=== PATIENT | male | born 1985 | race Caucasian/White ===

== ENCOUNTER 2016-10-24 21:37 | Observation (INO) | payer BC ==
[~2016-10-24] VITALS: Ht 180.3 cm; Wt 128.9 kg
[2016-10-24] MEDS ORDERED: KETOROLAC TROMETHAMINE 30 MG/ML VIAL IV STA (23:42)
[2016-10-24] MEDS ORDERED: SODIUM CHLORIDE 0.9% 1000ML 1,000 ML IV STA (23:42)
[2016-10-24] MEDS ORDERED: ONDANSETRON INJ 2 MG/ML 2 ML VIAL IV STA (23:42)
[2016-10-24] MEDS ORDERED: HYDROmorphone INJ 0.5 MG/0.5 ML SYR IV STA (23:44)
[2016-10-24] MEDS ORDERED: HYDROmorphone INJ 0.5 MG/0.5 ML SYR IV PRN (23:45)
[2016-10-24] MEDS ORDERED: MoRPHine SULFATE 4 MG/ML 1 ML CARP\\VIAL IV PRN (23:45)
--- NOTE | 2016-10-24 23:49 | EMERGENCY ROOM VISIT NOTE ---
History Report prepared by Greyson: Amparo Chan Under the Supervision of: Dr. Ash Silveira D.O. First contact with patient: 23:38 Chief Complaint: FLANK PAIN Stated Complaint: LF SIDE SUDDEN ONSET PAIN,BACK PAIN,SWEATING History of Present Illness The patient is a 31 year old male who presents to the Emergency Room with complaints of severe and persistent left flank pain starting today. He has pain radiation to the mid abdomen. The patient was driving from [place] to [place] when he had the onset of his pain. He also complains of generalized weakness, nausea, and vomiting. He also reports chills and diaphoresis but denies any fevers. He denies chest pain, shortness of breath, dark urine/blood in urine, or any other complaints. He denies any history of similar symptoms. He does not have any medical problems. Source of History: patient Onset: today Position: other (left flank) Timing: other (persistent) Associated Symptoms: + chills, + diaphoresis, + nausea, + vomiting, + weakness, No SOB, No chest pain, No fevers Review of Systems See HPI for pertinent positives & negatives. A total of 10 systems reviewed and were otherwise negative. Past Medical & Surgical Medical Problems: (1) No Known Active Medical Problems Family History Patient reports no known family medical history. Social History Smoking Status: Never Smoker Alcohol Use: occasionally Occupation Status: employed Current/Historical Medications Scheduled PRN Famotidine (Pepcid), 20 MG PO DIRECTED PRN for Indigestion Allergies Coded Allergies: Dust (Verified Allergy, Intermediate, SNEEZING, RUNNY NOSE, ITCHY EYES, ) Molds and Smuts (Verified Allergy, Intermediate, SNEEZING, RUNNY NOSE, ITCHY EYES, 10/25/16) POLLEN (Verified Allergy, Intermediate, SNEEZING, RUNNY NOSE, ITCHY EYES, 10/25/16) Physical Exam Vital Signs Date Time Temp Pulse Resp B/P Pulse Ox O2 Delivery O2 Flow Rate FiO2 10/25/16 01:44 62 21 144/79 97 Room Air 10/25/16 00:07 60 10/25/16 00:06 59 145/89 95 Room Air 10/24/16 21:44 36.8 73 18 180/100 99 Room Air Physical Exam GENERAL: Patient is awake, alert, very anxious and uncomfortable appearing, appears to be in significant pain. EYES: The conjunctivae are clear. The pupils are round and reactive. EARS, NOSE, MOUTH AND THROAT: The nose is without any evidence of any deformity. Mucous membranes are moist tongue is midline NECK: The neck is nontender and supple. RESPIRATORY: Normal respiratory effort is noted there is no evidence of wheezing rhonchi or rales CARDIOVASCULAR: Regular rate and rhythm noted there no murmurs rubs or gallops normal S1 normal S2 GASTROINTESTINAL: The abdomen is soft. Bowel sounds are present in all quadrants. Abdomen is diffusely tender with significant tenderness in the left upper and left lower quadrants. No specific guarding or rigidity appreciated. BACK: CVA tenderness to percussion on the left, no midline tenderness noted, range of motion appeared intact MUSCULOSKELETAL/EXTREMITIES: There is no evidence of gross deformity full range of motion is noted in the hips and shoulders SKIN: Cool and diaphoretic. There is no edema or signs of cellulitis in the lower extremities. NEUROLOGIC: Patient is awake alert and oriented x3 Medical Decision & Procedures ER Provider Diagnostic Interpretation: CT results as stated below per my review and radiologist interpretation. CT ABDOMEN AND PELVIS A few loops of small bowel demonstrate mild wall thickening. This may represent minimal enteritis, in the central abdomen. There is also mild mesenteric lymphadenopathy, anomaly in the right lower quadrant. This may represent mesenteric adenitis. Could be reactive to mild enteritis. Remained of noncontrast study shows no definite evidence for an acute inflammatory process. Radiologist: Ashok Ann MD Laboratory Results Test 10/24/16 23:50 Immature Granulocyte % (Auto) 0.3 % White Blood Count 18.04 K/uL (4.8-10.8) Red Blood Count 5.16 M/uL (4.7-6.1) Hemoglobin 14.8 g/dL (14.0-18.0) Hematocrit 43.7 % (42-52) Mean Corpuscular Volume 84.7 fL (80-100) Mean Corpuscular Hemoglobin 28.7 pg (25-34) Mean Corpuscular Hemoglobin Concent 33.9 g/dl (32-36) Platelet Count 279 K/uL (130-400) Mean Platelet Volume 10.1 fL (7.4-10.4) Neutrophils (%) (Auto) 86.9 % Lymphocytes (%) (Auto) 8.6 % Monocytes (%) (Auto) 4.1 % Eosinophils (%) (Auto) 0.0 % Basophils (%) (Auto) 0.1 % Neutrophils # (Auto) 15.68 K/uL (1.4-6.5) Lymphocytes # (Auto) 1.55 K/uL (1.2-3.4) Monocytes # (Auto) 0.74 K/uL (0.11-0.59) Eosinophils # (Auto) 0.00 K/uL (0-0.5) Basophils # (Auto) 0.02 K/uL (0-0.2) Immature Granulocyte # (Auto) 0.05 K/uL (0.00-0.02) Urine Color YELLOW Urine Appearance CLEAR (CLEAR) Urine pH 5.5 (4.5-7.5) Urine Specific [place] 1.024 (1.000-1.030) Urine Protein NEG (NEG) Urine Glucose (UA) NEG (NEG) Urine Ketones NEG (NEG) Urine Occult Blood NEG (NEG) Urine Nitrite NEG (NEG) Urine Bilirubin NEG (NEG) Urine Urobilinogen NEG (NEG) Urine Leukocyte Esterase NEG (NEG) Total Bilirubin 0.7 mg/dl (0.2-1) Direct Bilirubin 0.1 mg/dl (0-0.2) Aspartate Amino Transf (AST/SGOT) 7 U/L (15-37) Alanine Aminotransferase (ALT/SGPT) 28 U/L (12-78) Alkaline Phosphatase 78 U/L (45-117) Total Protein 7.8 gm/dl (6.4-8.2) Albumin 4.3 gm/dl (3.4-5.0) Lipase 101 U/L (73-393) Laboratory results per my review. Medications Administered Medications (Trade) Dose Ordered Sig/Abhijeet Route Start Time Stop Time Status Last Admin Dose Admin Sodium Chloride (Nss 1000ml) 1,000 ml @ 999 mls/hr Q1H1M STAT IV 10/24/16 23:42 10/25/16 00:42 DC 10/25/16 00:01 999 MLS/HR Ondansetron HCl (Zofran Inj) 4 mg NOW STAT IV 10/24/16 23:42 10/24/16 23:44 DC 10/25/16 00:00 4 MG Ketorolac Tromethamine (Toradol Inj) 30 mg NOW STAT IV 10/24/16 23:42 10/24/16 23:44 DC 10/25/16 00:00 30 MG Hydromorphone HCl (Dilaudid Inj) 0.5 mg NOW STAT IV 10/24/16 23:44 10/24/16 23:45 DC 10/25/16 00:00 0.5 MG ED Course 2338: The patient was evaluated in room B08. A complete history and physical examination were performed. 2342: Toradol Inj 30 mg IV, Zofran Inj 4 mg IV, Sodium Chloride 1000 ml @ 999 mls/hr IV 2344: Dilaudid Inj 0.5 mg IV 2345: Dilaudid Inj 0.5 mg IV, Morphine Sulfate 4 mg IV 0030: I reevaluated the patient who is not feeling any better. 0110: I discussed results and treatment plan with the patient. He verbalizes agreement and understanding. 0118: I spoke with Dr. Armas of the [facility] Service. The patient will be evaluated for further management and care. Medical Decision Prior records/ancillary studies reviewed. Triage Nursing notes reviewed. The patient's history was concerning for flank pain. Differential diagnosis: Etiologies such as renal colic, appendicitis, diverticulitis, mesenteric ischemia, aortic pathology, infections, inflammatory bowel disease, PUD, biliary pathology, UTI, as well as others were entertained. The patient is a 31-year-old male who presented to the emergency department for an evaluation of acute onset of left flank pain and abdominal pain. The patient' s physical exam was consistent with with very significant pain. He was very diaphoretic and uncomfortable. Given the acute onset of his symptoms I thought this could be consistent with a kidney stone. The patient was treated with IV fluids IV pain medicine and IV antiemetics. On subsequent reevaluation he was only mildly improved. For this reason I discussed his case with the on-call [facility]ist. They've agreed to evaluate the patient in the emergency department for further management and disposition. The patient was not found have signs of ureteral calculi. He did not have acute appendicitis or diverticulitis. The CAT scan appear to be more consistent with a nonspecific enteritis. This is somewhat puzzling given the acute onset of the patient's symptoms. But he is not from the area and does not have anywhere to stay or any follow-up and given his elevated white blood cell count and his symptoms I felt he would be better managed as an inpatient. Consults Time Called: 116 Consulting Physician: Dr. Armas of the [facility]ist Service Returned Call: [phone] [facility] The patient will be evaluated for further management and care. Impression Primary Impression: Abdominal pain, left lower quadrant Additional Impressions: Nausea & vomiting Elevated WBC count Scribe Attestation The scribe's documentation has been prepared under my direction and personally reviewed by me in its entirety. I confirm that the note above accurately reflects all work, treatment, procedures, and medical decision making performed by me. Departure Information Dispostion Being Evaluated By Hospitalist Referrals No Doctor, Assigned (PCP) Patient Instructions My [facility] Problem Qualifiers Additional Impressions: Nausea & vomiting Vomiting type: unspecified Vomiting Intractability: non-intractable Qualified Codes: R11.2 - Nausea with vomiting, unspecified Elevated WBC count Leukocytosis type: unspecified Qualified Codes: D72.829 - Elevated white blood cell count, unspecified
[2016-10-25 00:05] LABS: BASO % 0.1 %; BASO ABS # 0.02 K/uL (0-0.2); COMPLETE YES; HEMATOCRIT 43.7 % (42-52); IG% 0.3 %; LYMPH % 8.6 %; LYMPH ABS # 1.55 K/uL (1.2-3.4); MEAN CELL VOLUME 84.7 fL (80-100); MEAN CORPUSCULAR HEMOGLOBIN 28.7 pg (25-34); MEAN CORPUSCULAR HGB CONC 33.9 g/dl (32-36); MEAN PLATELET VOLUME 10.1 fL (7.4-10.4); MONO % 4.1 %; NEUT % 86.9 %; PLATELET COUNT 279 K/uL (130-400); RED BLOOD COUNT 5.16 M/uL (4.7-6.1); WHITE BLOOD COUNT 18.04 K/uL (4.8-10.8)
[2016-10-25] MEDS ORDERED: FAMO20TA11 PO (00:13)
[2016-10-25 00:32] LABS: BUN/CREATININE RATIO 15.7 (10-20); CREATININE 1.1 mg/dl (0.60-1.40)
[2016-10-25 01:06] LABS: URINE APPEARANCE CLEAR (CLEAR); URINE BILIRUBIN NEG (NEG); URINE COLOR YELLOW; URINE NITRITE NEG (NEG); URINE PH 5.5 (4.5-7.5); URINE SPECIFIC GRAVITY 1.024 (1.000-1.030); UROBILINOGEN NEG (NEG)
[2016-10-25 01:07] LABS: MANUAL MICROSCOPIC REQUIRED? NO; REVIEW REQ? NO
--- NOTE | 2016-10-25 01:58 | History and Physical ---
History & Physical Date & Time of Service: Oct 25, 2016 at 01:58 Chief Complaint: Abdominal pain, nausea, vomiting . Primary Care Physician: No Doctor, Assigned History of Present Illness Source: patient, hospital records 31-year-old male traveling from [place] to [place]. He enjoys good health. Developed sudden onset of left-sided abdominal/flank pain earlier today. The pain was sharp in nature and severe. It radiated toward his umbilicus. He was initially nauseated and subsequently developed large-volume emesis without blood or coffee grounds. No diarrhea, melena, hematochezia. No dysuria or hematuria. No fever. He tried Pepcid without much benefit. Came to the ED because of his worsening symptoms. . Past Medical/Surgical History mild asthma s/p tonsillectomy s/p ACL repair . Family History Father-abdominal aortic aneurysm Grandfather -CLL, mitral valve replacement Grandmother-hypertension, melanoma Grandfather- stroke, diabetes, prostate cancer Grandmother-[place] . . Social History Smoking Status: Never Smoker Alcohol Use: occasionally Occupational Status: employed Allergies Coded Allergies: Dust (Verified Allergy, Intermediate, SNEEZING, RUNNY NOSE, ITCHY EYES, ) Molds and Smuts (Verified Allergy, Intermediate, SNEEZING, RUNNY NOSE, ITCHY EYES, 10/25/16) POLLEN (Verified Allergy, Intermediate, SNEEZING, RUNNY NOSE, ITCHY EYES, 10/25/16) Home Medications Scheduled PRN Famotidine (Pepcid), 20 MG PO DIRECTED PRN for Indigestion Review of Systems As noted above in HPI. . Physical Exam Vital Signs Date Time Temp Pulse Resp B/P Pulse Ox O2 Delivery O2 Flow Rate FiO2 10/25/16 00:07 60 10/25/16 00:06 59 145/89 95 Room Air 10/24/16 21:44 36.8 73 18 180/100 99 Room Air General Appearance: WD/WN, + mild distress Head: normocephalic, atraumatic Eyes: normal inspection, PERRL, EOMI, sclerae normal ENT: normal ENT inspection Neck: supple, no adenopathy, thyroid normal, no JVD Respiratory/Chest: lungs clear, no respiratory distress, no accessory muscle use Cardiovascular: regular rate, rhythm, no edema, no gallop, no JVD, no murmur Abdomen/GI: + pertinent finding (quite bowel sounds, nondistended, moderate left lower quadrant tenderness without rebound or guarding, no organomegaly, no pulsatile masses) Extremities/Musculoskelatal: normal inspection, no calf tenderness Neurologic/Psych: 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 tested, alert, normal mood/affect, oriented x 3 Skin: normal color, warm/dry, no rash Diagnostics Laboratory Results Results Past 24 Hours Test 10/24/16 23:50 Range/Units White Blood Count 18.04 4.8-10.8 K/uL Red Blood Count 5.16 4.7-6.1 M/uL Hemoglobin 14.8 14.0-18.0 g/dL Hematocrit 43.7 42-52 % Mean Corpuscular Volume 84.7 80-100 fL Mean Corpuscular Hemoglobin 28.7 25-34 pg Mean Corpuscular Hemoglobin Concent 33.9 32-36 g/dl Platelet Count 279 130-400 K/uL Mean Platelet Volume 10.1 7.4-10.4 fL Neutrophils (%) (Auto) 86.9 % Lymphocytes (%) (Auto) 8.6 % Monocytes (%) (Auto) 4.1 % Eosinophils (%) (Auto) 0.0 % Basophils (%) (Auto) 0.1 % Neutrophils # (Auto) 15.68 1.4-6.5 K/uL Lymphocytes # (Auto) 1.55 1.2-3.4 K/uL Monocytes # (Auto) 0.74 0.11-0.59 K/uL Eosinophils # (Auto) 0.00 0-0.5 K/uL Basophils # (Auto) 0.02 0-0.2 K/uL RDW Standard Deviation 40.7 36.4-46.3 fL RDW Coefficient of Variation 13.3 11.5-14.5 % Immature Granulocyte % (Auto) 0.3 % Immature Granulocyte # (Auto) 0.05 0.00-0.02 K/uL Urine Color YELLOW Urine Appearance CLEAR CLEAR Urine pH 5.5 4.5-7.5 Urine Specific [place] 1.024 1.000-1.030 Urine Protein NEG NEG Urine Glucose (UA) NEG NEG Urine Ketones NEG NEG Urine Occult Blood NEG NEG Urine Nitrite NEG NEG Urine Bilirubin NEG NEG Urine Urobilinogen NEG NEG Urine Leukocyte Esterase NEG NEG Sodium Level 144 136-145 mmol/L Potassium Level 4.0 3.5-5.1 mmol/L Chloride Level 108 98-107 mmol/L Carbon Dioxide Level 26 21-32 mmol/L Anion Gap 10.0 3-11 mmol/L Blood Urea Nitrogen 17 7-18 mg/dl Creatinine 1.10 0.60-1.40 mg/dl Est Creatinine Clear Calc Drug Dose 133.1 ml/min Estimated GFR () 103.1 Estimated GFR (Non- 89.0 BUN/Creatinine Ratio 15.7 10-20 Random Glucose 129 70-99 mg/dl Calcium Level 9.0 8.5-10.1 mg/dl Total Bilirubin 0.7 0.2-1 mg/dl Direct Bilirubin 0.1 0-0.2 mg/dl Aspartate Amino Transf (AST/SGOT) 7 15-37 U/L Alanine Aminotransferase (ALT/SGPT) 28 12-78 U/L Alkaline Phosphatase 78 45-117 U/L Total Protein 7.8 6.4-8.2 gm/dl Albumin 4.3 3.4-5.0 gm/dl Lipase 101 73-393 U/L Diagnostic Radiology CT of the abdomen showed some small bowel thickening consistent with an enteritis. No evidence of bowel obstruction, perforated viscus, diverticulitis, appendicitis, etc. . Impression Assessment and Plan ABDOMINAL PAIN Most likely secondary to viral gastroenteritis. Manage with IV fluids, antiemetics, analgesics. Further evaluation as necessary if symptoms worsen. VTE PROPHYLAXIS Low risk. Subcutaneous enoxaparin. Ambulate. DISPOSITION Observation status on Med-Surg Unit. Expected discharge to home. Follow-up with primary care provider in [place]. . VTE Prophylaxis Given or contraindicated: Unfractionated heparin SQ
[2016-10-25] MEDS ORDERED: ONDANSETRON INJ 2 MG/ML 2 ML VIAL IV PRN (02:00)
[2016-10-25 02:35] VITALS: BP 159/103; PULSE 75; TEMP 37; O2SAT 94; Ht 180.3 cm; Wt 128.9 kg
[2016-10-25] MEDS ORDERED: HYDROmorphone INJ 0.5 MG/0.5 ML SYR IV PRN (04:45)
[2016-10-25] MEDS: D5W AND LACTATED RINGERS 1,000 ML IV SCH ×4 (05:11→23:29)
[2016-10-25] MEDS ORDERED: IV FLUIDS COMPLETED PRN (06:00)
[2016-10-25 07:02] VITALS: BP 128/72; PULSE 75; TEMP 36.7; O2SAT 95
--- NOTE | 2016-10-25 07:21 | DIAGNOSTIC IMAGING REPORT ---
CT SCAN OF THE ABDOMEN AND PELVIS WITHOUT CONTRAST CLINICAL HISTORY: left flank pain COMPARISON STUDY: No previous studies for comparison. TECHNIQUE: CT scan of the abdomen and pelvis was performed from the lung bases to the proximal femurs. Images are reviewed in the axial, sagittal, and coronal planes. IV contrast was not administered for this examination. CT DOSE: 1375.00 mGy.cm FINDINGS: Lower chest: There are minimal dependent atelectatic changes. There are calcified granulomas within the right lower lobe. Liver: The unenhanced liver is normal in size, contour, and attenuation. There is no intrahepatic biliary ductal dilatation. Gallbladder: Unremarkable. Spleen: Normal in size and attenuation. Pancreas: Unremarkable. Adrenal glands: There is a 14 mm left adrenal adenoma. Kidneys: No renal, ureteral, or bladder calculi are visualized. Bowel: There are no transition zones indicate bowel obstruction. The appendix appears normal. There is mild bowel wall thickening involving the terminal ileum. There is a small bowel feces sign. Peritoneum: There is no intraperitoneal free air or abdominal ascites. Vasculature: The abdominal aorta is normal in course and caliber. Adenopathy: There are mildly prominent ileocolic lymph nodes, likely reactive Pelvic viscera: The bladder, and pelvic viscera are unremarkable. Skeletal structures: No destructive osseous lesions are seen. IMPRESSION: 1. No evidence of bowel obstruction. No evidence of free air 2. Normal appendix 3. No renal, ureteral, or bladder calculi identified 4. Mild small bowel wall thickening most pronounced the level the terminal ileum. There is a small bowel feces sign. The findings likely indicate a nonspecific enteritis. Electronically signed by: Scar Sifuentes M.D. 10/25/2016 7:19 AM Dictated Date/Time: 10/25/2016 7:14 AM
[2016-10-25 07:44] LABS: HEMATOCRIT 39.9 % (42-52); MEAN CELL VOLUME 84.2 fL (80-100); MEAN CORPUSCULAR HEMOGLOBIN 28.9 pg (25-34); MEAN CORPUSCULAR HGB CONC 34.3 g/dl (32-36); MEAN PLATELET VOLUME 10.2 fL (7.4-10.4); PLATELET COUNT 255 K/uL (130-400); RED BLOOD COUNT 4.74 M/uL (4.7-6.1); WHITE BLOOD COUNT 14.19 K/uL (4.8-10.8)
[2016-10-25 07:58] LABS: PROTHROMBIN TIME (PATIENT) 10.7 SECONDS (9.0-12.0)
[2016-10-25 08:18] LABS: BUN/CREATININE RATIO 16.6 (10-20); CALCIUM 8.8 mg/dl (8.5-10.1); CREATININE 0.9 mg/dl (0.60-1.40); POTASSIUM 3.9 mmol/L (3.5-5.1)
[2016-10-25] MEDS: ENOXAPARIN 40 MG/0.4 ML SYR SQ SCH (09:00)
[2016-10-25] MEDS: PANTOprazole INJ 40 MG in SYRINGE 0 ML IV SCH (11:18)
[2016-10-25 11:54] VITALS: BP 122/80; PULSE 75; TEMP 36.7; O2SAT 96
[2016-10-25 14:54] VITALS: BP 138/86; PULSE 79; TEMP 36.8; O2SAT 94
[2016-10-25 15:15] VITALS: O2SAT 94
--- NOTE | 2016-10-25 16:52 | Progress Note ---
Internal Med Progress Note Date of Service: Oct 25, 2016. Provider Documentation: SUBJECTIVE: nausea and vomiting resolved tolerating clears denies abdominal pain afebrile denies diarrhea OBJECTIVE: Vital Signs-as noted below Exam: General-alert and oriented x 3 Not in distress ENT-normal hearing Neck-no neck masses Lungs-cta b/l no wheezing no crackles Heart-s1 and s2 heard regular rate and rhythm no murmurs' Abdomen-soft bowel sounds present non tender no distension Extremities-no edema no erythema Neuro-alert and awake moves extremities Lab data as noted below. ASSESSMENT & PLAN: ABDOMINAL PAIN Most likely viral gastroenteritis. improving continue iv fluids advancing diet to soft diet will f/hull labs. VTE PROPHYLAXIS on Lovenox ambulate DISPOSITION possible d/c in am Vital Signs: Date Time Temp Pulse Resp B/P Pulse Ox O2 Delivery O2 Flow Rate FiO2 10/25/16 14:54 36.8 79 16 138/86 94 Room Air 10/25/16 11:54 36.7 75 17 122/80 96 Room Air 10/25/16 07:50 Room Air 10/25/16 07:02 36.7 75 16 128/72 95 Room Air 10/25/16 02:35 Room Air 10/25/16 02:35 37.0 75 16 159/103 Room Air 10/25/16 02:35 37.0 75 16 159/103 94 Room Air 10/25/16 02:24 62 21 144/79 97 10/25/16 01:44 62 21 144/79 97 Room Air 10/25/16 00:07 60 10/25/16 00:06 59 145/89 95 Room Air 10/24/16 21:44 36.8 73 18 180/100 99 Room Air Lab Results: Results Past 24 Hours Test 10/24/16 23:50 10/25/16 06:44 Range/Units White Blood Count 18.04 14.19 4.8-10.8 K/uL Red Blood Count 5.16 4.74 4.7-6.1 M/uL Hemoglobin 14.8 13.7 14.0-18.0 g/dL Hematocrit 43.7 39.9 42-52 % Mean Corpuscular Volume 84.7 84.2 80-100 fL Mean Corpuscular Hemoglobin 28.7 28.9 25-34 pg Mean Corpuscular Hemoglobin Concent 33.9 34.3 32-36 g/dl Platelet Count 279 255 130-400 K/uL Mean Platelet Volume 10.1 10.2 7.4-10.4 fL Neutrophils (%) (Auto) 86.9 % Lymphocytes (%) (Auto) 8.6 % Monocytes (%) (Auto) 4.1 % Eosinophils (%) (Auto) 0.0 % Basophils (%) (Auto) 0.1 % Neutrophils # (Auto) 15.68 1.4-6.5 K/uL Lymphocytes # (Auto) 1.55 1.2-3.4 K/uL Monocytes # (Auto) 0.74 0.11-0.59 K/uL Eosinophils # (Auto) 0.00 0-0.5 K/uL Basophils # (Auto) 0.02 0-0.2 K/uL RDW Standard Deviation 40.7 40.7 36.4-46.3 fL RDW Coefficient of Variation 13.3 13.3 11.5-14.5 % Immature Granulocyte % (Auto) 0.3 % Immature Granulocyte # (Auto) 0.05 0.00-0.02 K/uL Urine Color YELLOW Urine Appearance CLEAR CLEAR Urine pH 5.5 4.5-7.5 Urine Specific [place] 1.024 1.000-1.030 Urine Protein NEG NEG Urine Glucose (UA) NEG NEG Urine Ketones NEG NEG Urine Occult Blood NEG NEG Urine Nitrite NEG NEG Urine Bilirubin NEG NEG Urine Urobilinogen NEG NEG Urine Leukocyte Esterase NEG NEG Sodium Level 144 141 136-145 mmol/L Potassium Level 4.0 3.9 3.5-5.1 mmol/L Chloride Level 108 107 98-107 mmol/L Carbon Dioxide Level 26 25 21-32 mmol/L Anion Gap 10.0 9.0 3-11 mmol/L Blood Urea Nitrogen 17 15 7-18 mg/dl Creatinine 1.10 0.90 0.60-1.40 mg/dl Est Creatinine Clear Calc Drug Dose 133.1 162.7 ml/min Estimated GFR () 103.1 131.4 Estimated GFR (Non- 89.0 113.4 BUN/Creatinine Ratio 15.7 16.6 10-20 Random Glucose 129 126 70-99 mg/dl Calcium Level 9.0 8.8 8.5-10.1 mg/dl Total Bilirubin 0.7 0.2-1 mg/dl Direct Bilirubin 0.1 0-0.2 mg/dl Aspartate Amino Transf (AST/SGOT) 7 15-37 U/L Alanine Aminotransferase (ALT/SGPT) 28 12-78 U/L Alkaline Phosphatase 78 45-117 U/L Total Protein 7.8 6.4-8.2 gm/dl Albumin 4.3 3.4-5.0 gm/dl Lipase 101 73-393 U/L Prothrombin Time 10.7 9.0-12.0 SECONDS Prothromb Time International Ratio 1.0 0.9-1.1 Activated Partial Thromboplast Time 26.2 21.0-31.0 SECONDS Partial Thromboplastin Ratio 1.0
[2016-10-25 23:00] VITALS: BP 146/85; PULSE 57; TEMP 36.7; O2SAT 98
[2016-10-26] MEDS: D5W AND LACTATED RINGERS 1,000 ML IV SCH ×2 (05:57→12:29)
[2016-10-26 07:01] VITALS: BP 157/95; PULSE 94; TEMP 37.3; O2SAT 95
[2016-10-26] MEDS ORDERED: NURSING DECISION MEDICATION ORDER SCH (08:45)
[2016-10-26] MEDS: ENOXAPARIN 40 MG/0.4 ML SYR SQ SCH (08:48)
[2016-10-26] MEDS ORDERED: COUGH DROP (SUGAR FREE) LOZ 24 LOZ/1 BOX ONE (08:50)
[2016-10-26] MEDS ORDERED: COUGH DROP (SUGAR FREE) LOZ 24 LOZ/1 BOX PO PRN (09:15)
[2016-10-26] MEDS: PANTOprazole INJ 40 MG in SYRINGE 0 ML IV SCH (11:10)
--- NOTE | 2016-10-26 14:34 | Discharge Instructions ---
Discharge Instructions Date of Service Oct 26, 2016. Admission Reason for Admission: Abdominal Pain, Llq Discharge Discharge Diagnosis / Problem: GASTROENETERITIS Discharge Goals Goal(s): Decrease discomfort, Improve function Activity Recommendations Activity Limitations: resume your previous activity . Instructions / Follow-Up Instructions / Follow-Up FOLLOWUP WITH FAMILY DOCTOR IN ONE WEEK Current Hospital Diet Patient's current hospital diet: Low Fiber Diet Discharge Diet Recommended Diet: Regular Diet, AHA Diet (Heart Healthy) Pending Studies Studies pending at discharge: no Medical Emergencies . Who to Call and When: Medical Emergencies: If at any time you feel your situation is an emergency, please call 911 immediately. . Non-Emergent Contact Non-Emergency issues call your: Primary Care Provider . . "Provider Documentation" section prepared by Gama Monroe. VTE Core Measure Inpt VTE Proph given/why not?: Unfractionated heparin SQ
[2016-10-26 14:59] VITALS: BP 154/85; PULSE 89; TEMP 37.1; O2SAT 96
[2016-10-26 15:01] VITALS: BP 154/85; PULSE 89; TEMP 37.1; O2SAT 96
--- NOTE | 2016-10-26 20:05 | Progress Note ---
Internal Med Progress Note Date of Service: Oct 26, 2016. Provider Documentation: SUBJECTIVE: nausea and vomiting resolved tolerating soft diet denies abdominal pain afebrile want to be discharged OBJECTIVE: Vital Signs-as noted below Exam: General-alert and oriented x 3 Not in distress ENT-normal hearing Neck-no neck masses Lungs-cta b/l no wheezing no crackles Heart-s1 and s2 heard regular rate and rhythm no murmurs' Abdomen-soft bowel sounds present non tender no distension Extremities-no edema no erythema Neuro-alert and awake moves extremities Lab data as noted below. ASSESSMENT & PLAN: ABDOMINAL PAIN Most likely viral gastroenteritis. improving continue iv fluids tolerating soft diet improved discharged home Vital Signs: Date Time Temp Pulse Resp B/P Pulse Ox O2 Delivery O2 Flow Rate FiO2 10/26/16 15:01 37.1 89 18 96 Room Air 10/26/16 14:59 37.1 89 18 154/85 96 Room Air 10/26/16 07:20 Room Air 10/26/16 07:01 37.3 94 20 157/95 95 Room Air 10/25/16 23:32 Room Air 10/25/16 23:00 36.7 57 16 146/85 98 Room Air
--- NOTE | 2016-10-27 19:14 | Discharge Summary ---
Discharge Summary Date of Service Oct 27, 2016. Discharge Summary Admission Date: Oct 25, 2016 at 02:00 Discharge Date: Oct 26, 2016 Discharge Disposition: Home Principal Diagnosis: GASTROENTERITIS Secondary Diagnoses/Problems: mild asthma s/p tonsillectomy s/p ACL repair Procedures: CT ABD/PELVIS: 1. No evidence of bowel obstruction. No evidence of free air 2. Normal appendix 3. No renal, ureteral, or bladder calculi identified 4. Mild small bowel wall thickening most pronounced the level the terminal ileum. There is a small bowel feces sign. The findings likely indicate a nonspecific enteritis. Medication Reconciliation Continued Medications: Famotidine (Pepcid) 20 Mg Tab 20 MG PO DIRECTED PRN for Indigestion, TAB Admission Information HPI (per Admitting provider): 31-year-old male traveling from [place] to [place]. He enjoys good health. Developed sudden onset of left-sided abdominal/flank pain earlier today. The pain was sharp in nature and severe. It radiated toward his umbilicus. He was initially nauseated and subsequently developed large-volume emesis without blood or coffee grounds. No diarrhea, melena, hematochezia. No dysuria or hematuria. No fever. He tried Pepcid without much benefit. Came to the ED because of his worsening symptoms. . Physical Exam (per Admitting): General Appearance: WD/WN, + mild distress Head: normocephalic, atraumatic Eyes: normal inspection, PERRL, EOMI, sclerae normal ENT: normal ENT inspection Neck: supple, no adenopathy, thyroid normal, no JVD Respiratory/Chest: lungs clear, no respiratory distress, no accessory muscle use Cardiovascular: regular rate, rhythm, no edema, no gallop, no JVD, no murmur Abdomen/GI: + pertinent finding (quite bowel sounds, nondistended, moderate left lower quadrant tenderness without rebound or guarding, no organomegaly, no pulsatile masses) Extremities/Musculoskelatal: normal inspection, no calf tenderness Neurologic/Psych: rn corrections II-XII nml as tested, alert, normal mood/affect, oriented x 3 Skin: normal color, warm/dry, no rash Hospital Course ABDOMINAL PAIN Most likely viral gastroenteritis. improving continue iv fluids tolerating soft diet improved discharged home Total time spent on discharge = 35MINUTES This includes examination of the patient, discharge planning, medication reconciliation, and communication with other providers. Discharge Instructions Discharge Instructions Date of Service Oct 26, 2016. Admission Reason for Admission: Abdominal Pain, Llq Discharge Discharge Diagnosis / Problem: GASTROENETERITIS Discharge Goals Goal(s): Decrease discomfort, Improve function Activity Recommendations Activity Limitations: resume your previous activity . Instructions / Follow-Up Instructions / Follow-Up FOLLOWUP WITH FAMILY DOCTOR IN ONE WEEK Current Hospital Diet Patient's current hospital diet: Low Fiber Diet Discharge Diet Recommended Diet: Regular Diet, AHA Diet (Heart Healthy) Pending Studies Studies pending at discharge: no Medical Emergencies . Who to Call and When: Medical Emergencies: If at any time you feel your situation is an emergency, please call 911 immediately. . Non-Emergent Contact Non-Emergency issues call your: Primary Care Provider . . "Provider Documentation" section prepared by Gama Monroe. VTE Core Measure Inpt VTE Proph given/why not?: Unfractionated heparin SQ
== END 2016-10-26 16:01 | disposition home or self-care (01) ==
LOC: ENRESERVDT → ENRESERVTM → C.EDB 21:39 → C.MSN 10-25 02:00
PROVIDERS: ADMIT Hospitalist; ATTEND Internal Medicine
DX: R11.2 Nausea with vomiting, unspecified (principal); J45.909 Unspecified asthma, uncomplicated; R10.32 Left lower quadrant pain; D72.829 Elevated white blood cell count, unspecified